=== PATIENT | female | born 1965 | race Caucasian/White ===

== ENCOUNTER 2017-04-08 07:04 | Day surgery (SDC) | payer OTHER ==
[~2017-04-08] VITALS: Ht 157.5 cm; Wt 95.4 kg
[2017-04-08 08:11] VITALS: Ht 157.5 cm; Wt 95.4 kg
[2017-04-08] MEDS ORDERED: OMEPRAZOLE PO (08:18)
[2017-04-08] MEDS ORDERED: LISINOPRIL PO (08:18)
[2017-04-08 08:32] VITALS: BP 146/78; PULSE 83; RESP 14
[2017-04-08] MEDS ORDERED: MIDAZOLAM 1 MG/ML 2 ML INJ ONE ×3 (09:36)
[2017-04-08] MEDS ORDERED: FENTAnyl 50 MCG/ML VIAL ONE (09:36)
--- NOTE | 2017-04-08 12:15 | GILP ---
DATE OF PROCEDURE: 04/08/2017 PROCEDURE: 1. Esophagogastroduodenoscopy with biopsy. 2. Colonoscopy with polypectomy. SURGEON: Meliza Young MD INDICATION: A 51-year-old female undergoing this procedure for severe heartburn and colonoscopy for colon cancer screening. The risks of the procedure, related and unrelated complications, anestheti c risks, alternatives discussed, explained and informed consent was obtained. DESCRIPTION OF PROCEDURE: The patient was brought to the GI lab, sedated with 5 mg of Versed and 10 0 mcg of fentanyl. After optimal sedation, scope was passed with much ease into esophagus which was grossly within normal limits. Z-line was at 35 cm. Stomach mucosa revealed gastritis, more pronou nced in the antrum. Four biopsies obtained to rule out H. pylori infection. There are 4 or 5 fundi c gland polyps, one of them was biopsied. Duodenum, first and second part appeared normal including ampulla. Retroversion also was normal. Scope was straightened out and removed with good patient t olerance. IMPRESSION: 1. Normal esophagus. 2. Normal Z-line. 3. Z-line at 35 cm. 4. Gastritis. 5. Multiple benign fundic gland polyps. 6. Normal duodenum and ampulla. PLAN: To review histopathology. The patient will be treated with PPI. She is to lose weight. COLONOSCOPY: She was turned around, scope was passed with much ease into the rectum. Digital exami nation was normal except for a ring-like structure in the anal , which was felt on the fingerti p. Scope was advanced all the way into the cecum. Appendiceal orifice identified entering to termi nal ileum, which was normal. Cecum was covered with a thin layer of stool, but it was grossly codi l. Terminal ileum was normal. While coming out, mucosa thoroughly inspected. Two polyps identifie d in the sigmoid colon, 2.5 cm to 3 cm, another was 2 cm. Both were removed successfully by hot sna re technique. There are 2 polyps in the rectum, both were flat polyps and were removed also by cold snare and hot snare technique. All the polyps were retrieved and sent for analysis. Small hemorrh oids identified. IMPRESSION: 1. Two polyps in the sigmoid colon, 3 cm to 2.5 cm, successfully removed by hot snare technique. 2. Two polyps flat, sessile 1 cm and 8 mm successfully removed both by hot and cold snare technique . 3. Ring-like structure in the anal area felt on the fingertip. 4. Small hemorrhoids. 5. Clarity and cleanliness was good. 6. Negative all the way into terminal ileum. PLAN: Review histopathology. The patient definitely needs repeat colonoscopy. Dictated By: MELIZA MARTINEZ/KELLY Conf#: [id number] DID#: [id number]
== END 2017-04-08 13:54 | disposition home or self-care (01) ==
LOC: GIL 07:04
PROVIDERS: ATTEND Internal Medicine Gastroenterology
DX: Z12.11 Encounter for screening for malignant neoplasm of colon (principal); K29.50 Unspecified chronic gastritis without bleeding; K62.1 Rectal polyp; D12.5 Benign neoplasm of sigmoid colon; K64.9 Unspecified hemorrhoids; I10 Essential (primary) hypertension
CPT/HCPCS: 43239; 45380; 88305; 88312; J2250; J3010; Z7610